=== PATIENT | female | born 1950 | race Caucasian/White ===

== ENCOUNTER 2023-07-18 05:30 | Inpatient (IN) | payer MEDICARE ==
[2023-07-18] MEDS ORDERED: Ondansetron PF 4 MG/2 ML Vial IVP PRN (06:01)
[2023-07-18] MEDS ORDERED: Acetaminophen 325 MG TAB PO PRN (06:01)
[2023-07-18] MEDS ORDERED: Calcium Carbonate 500 MG ChewTAB PO PRN (06:01)
[2023-07-18] MEDS ORDERED: HYDROcodone/Acetaminophen 7.5/325 mg Tablet PO PRN ×2 (06:01)
[2023-07-18] MEDS ORDERED: Nitroglycerin 0.4 MG TAB (25 Tab Bottle) SL PRN (06:02)
[2023-07-18] MEDS ORDERED: ALPRAZolam 0.25 MG TAB PO PRN (06:05)
[2023-07-18 06:26] VITALS: BMI 26.4
[2023-07-18 07:49] LABS: Troponin I Less than 0.010 ng/mL (< 0.028)
[2023-07-18 08:15] LABS: Cardiac Risk 4.6 (Less than 4.5)
[2023-07-18] MEDS ORDERED: DULoxetine 30 MG CAP PO SCH (09:00)
[2023-07-18] MEDS ORDERED: Metoprolol Tartrate 25 MG TAB PO SCH (09:00)
[2023-07-18] MEDS ORDERED: Aspirin 81 mg Enteric Coated Tablet PO SCH (09:00)
[2023-07-18] MEDS ORDERED: Multivitamin W/ Minerals 1 TAB PO SCH (09:00)
[2023-07-18 11:04] LABS: Troponin I Less than 0.010 ng/mL (< 0.028)
[2023-07-18 18:39] VITALS: BP 140/63; TEMP 97.4
[2023-07-19] MEDS ORDERED: Levothyroxine Sodium 75 MCG TAB PO SCH (06:00)
== END 2023-07-18 12:34 | disposition home or self-care (01) | DRG 556 ==
LOC: CSHTELE 05:30
PROVIDERS: ADMIT Student in an Organized Health Care Education/Training Program; ATTEND Nurse Practitioner Family
DX: M79.7 Fibromyalgia (principal); M54.12 Radiculopathy, cervical region; E03.9 Hypothyroidism, unspecified; G89.4 Chronic pain syndrome; G43.909 Migraine, unspecified, not intractable, without status migrainosus; I10 Essential (primary) hypertension; E78.5 Hyperlipidemia, unspecified; R03.0 Elevated blood-pressure reading, without diagnosis of hypertension; K21.9 Gastro-esophageal reflux disease without esophagitis; F41.9 Anxiety disorder, unspecified; Z90.710 Acquired absence of both cervix and uterus; Z88.8 Allergy status to other drugs, medicaments and biological substances; Z79.82 Long term (current) use of aspirin; Z79.890 Hormone replacement therapy; Z79.899 Other long term (current) drug therapy; Z98.890 Other specified postprocedural states; Z82.49 Family history of ischemic heart disease and other diseases of the circulatory system
CPT/HCPCS: 36415; 80061; 93005; 93010

== ENCOUNTER 2024-05-25 14:29 | Outpatient (CLI) | payer MEDICARE | END 2024-05-25 14:30 | disposition home or self-care (01) | LOC: CSHMAMMO 14:29 | PROVIDERS: ATTEND Internal Medicine Hematology & Oncology | DX: M81.8 Other osteoporosis without current pathological fracture (principal); M85.89 Other specified disorders of bone density and structure, multiple sites | CPT/HCPCS: 77080 ==

== ENCOUNTER 2025-10-17 20:34 | Emergency (ER) | payer MEDICARE | END 2025-10-17 21:22 | disposition home or self-care (01) | LOC: CSHERS 20:34 | DX: R07.89 Other chest pain (principal) | CPT/HCPCS: 96372; 99284; J2272 ==